=== PATIENT | male | born 1995 | race Caucasian/White ===

== ENCOUNTER 2019-12-10 22:14 | Emergency (ER) | payer OTHER ==
[~2019-12-10] VITALS: Ht 185.4 cm; Wt 81.6 kg
[2019-12-10 22:38] VITALS: BP 111/61; Ht 185.4 cm; Wt 81.6 kg
== END 2019-12-11 02:27 | disposition left against medical advice (07) ==
LOC: ED 22:14
DX: Z53.21 Procedure and treatment not carried out due to patient leaving prior to being seen by health care provider (principal)